=== PATIENT | male | born 1965 | race African-American/Black ===

== ENCOUNTER 2017-10-17 18:01 | Emergency (ER) | payer OTHER ==
[~2017-10-17] VITALS: Ht 180.3 cm; Wt 102.5 kg
[2017-10-17 18:23] VITALS: Ht 180.3 cm; Wt 102.5 kg
[2017-10-17 19:28] VITALS: BP 157/117
== END 2017-10-17 19:28 | disposition other institution (70) ==
LOC: ED 18:01
DX: I16.0 Hypertensive urgency (principal); Z88.0 Allergy status to penicillin

== ENCOUNTER 2017-10-17 18:01 | Emergency (ER) | payer OTHER | END 2017-10-17 19:28 | disposition other institution (70) | LOC: ED 18:01 | DX: Z02.89 Encounter for other administrative examinations (principal) ==